=== PATIENT | female | born 1970 | race Caucasian/White ===

== ENCOUNTER 2017-05-22 00:01 | Emergency (ER) | payer OTHER ==
[2017-05-22 00:01] VITALS: BMI 43.4
[2017-05-22 00:16] VITALS: RESP 20
--- NOTE | 2017-05-22 01:19 | C.PDOC ---
History Of Present Illness Patient presents to the ER with a complaint of a dull, cramping, abdominal pain , and diarrhea. Patient was seen in [place] yesterday; patient had a CT and full work up with negative results. Denies fever, chills, nausea, or vomiting. Time Seen by Provider: 05/22/17 01:18 Chief Complaint (Nursing): Abdominal Pain History Per: Patient History/Exam Limitations: no limitations Onset/Duration Of Symptoms: Days Current Symptoms Are (Timing): Still Present Location Of Pain/Discomfort: Diffuse Radiation Of Pain To:: None Quality Of Discomfort: Dull, Cramping Associated Symptoms: Diarrhea. denies: Fever, Chills, Nausea, Vomiting Exacerbating Factors: None Alleviating Factors: None Recent travel outside of the [place]: No Abnormal Vaginal Bleeding: No Past Medical History Reviewed: Historical Data, Nursing Documentation, Vital Signs Vital Signs: Last Vital Signs Temp 98.1 F 05/22/17 00:12 Pulse 79 05/22/17 00:12 Resp 20 05/22/17 00:12 BP 119/76 05/22/17 00:12 Pulse Ox 98 05/22/17 03:16 - Medical History PMH: No Chronic Diseases, Pneumonia (15 years ago) - [facility] Procedures BILAT ENDOS OCC TUBE NEC (02/02/01) CERVICAL BIOPSY NEC (03/31/01) CLOSURE SKIN & SUBCUTANEOUS NEC (06/20/15) D & C NEC (03/31/01) DPT ADMINISTRATION (06/20/15) IMMOBILIZ/WOUND ATTN NEC (06/20/13) INJECT/INFUSE NEC (11/18/14) REMOV THERAPEUT DEV NEC (07/04/15) Family History: States: No Known Family Hx - Social History Hx Tobacco Use: No Hx Alcohol Use: No Hx Substance Use: No - Immunization History Hx Tetanus Toxoid Vaccination: No Hx Influenza Vaccination: No Hx Pneumococcal Vaccination: No Review Of Systems Constitutional: Negative for: Fever, Chills Gastrointestinal: Positive for: Abdominal Pain, Diarrhea. Negative for: Nausea , Vomiting Physical Exam - Physical Exam Appears: Non-toxic, Other (Morbidly obese) Skin: Warm, Dry Oral Mucosa: Moist Chest: Symmetrical, No Tenderness Cardiovascular: Rhythm Regular, No Murmur Respiratory: No Rales, No Rhonchi, No Wheezing Gastrointestinal/Abdominal: Soft, Tenderness (Mild diffuse), No Guarding, No Rebound Neurological/Psych: Oriented x3 ED Course And Treatment - Laboratory Results Result Diagrams: 05/22/17 01:27 05/22/17 01:27 O2 Sat by Pulse Oximetry: 98 (Room air) Pulse Ox Interpretation: Normal Progress Note: Ceftriaxone, pepcid, morphine, zofran, and IV fluids administered. Reevaluation Time: 03:29 Reassessment Condition: Improved Medical Decision Making Medical Decision Making: Upon provider reevaluation patient is feeling better, is medically stable, and requires no further treatment in the ED at this time. Patient will be discharged home with Rx for macrobid and bentyl. Counseling was provided and all questions were answered regarding diagnosis and need for follow up with the referred clinic. There is agreement to discharge plan. Return if symptoms persist or worsen. Disposition Counseled Patient/Family Regarding: Studies Performed, Diagnosis, Need For Followup, Rx Given - Disposition Referrals: [facility] [Outside] [facility] [Outside] Disposition: HOME/ ROUTINE Disposition Time: 01:19 Condition: FAIR Additional Instructions: Please return if symptoms recur Prescriptions: Dicyclomine [Dicyclomine HCl] 10 mg PO QID #12 cap Nitrofurantoin Macrocrystals [Macrobid] 1 cap PO BID #14 cap Instructions: Urinary Tract Infection in Women (DC), Abdominal Pain (ED) Forms: [facility] (Grenadian) Print Language: DANISH - Clinical Impression Clinical Impression: Abdominal pain, Diarrhea, UTI (urinary tract infection) - Scribe Statement The provider has reviewed the documentation as recorded by the Scribsegundo Rodriguez All medical record entries made by the Ashleyibsegundo were at my direction and personally dictated by me. I have reviewed the chart and agree that the record accurately reflects my personal performance of the history, physical exam, medical decision making, and the department course for this patient. I have also personally directed, reviewed, and agree with the discharge instructions and disposition.
[2017-05-22] MEDS ORDERED: Sodium Chloride 0.9% 1,000 ML IV ONE (01:21)
[2017-05-22 01:30] LABS: BASO % 0.8 % (0.0-2.0); EOS # 0.1 K/uL (0.0-0.7); EOS % 1.9 % (0.0-4.0); HEMATOCRIT 37.8 % (34.0-47.0); LYMPH # 1.3 K/uL (1.0-4.3); LYMPH % 20.1 % (20.0-40.0); MEAN CELL VOLUME 84.4 fL (81.0-99.0); MEAN CORPUSCULAR HEMOGLOBIN 27.3 pg (27.0-31.0); MEAN CORPUSCULAR HGB CONC 32.3 g/dL (33.0-37.0); MEAN PLATELET VOLUME 10.1 fL (7.2-11.7); MONO # 0.6 K/uL (0.0-0.8); MONO % 8.7 % (0.0-10.0); RED CELL DISTRIBUTION WIDTH 14.9 % (11.5-14.5); WHITE BLOOD COUNT 6.3 K/uL (4.8-10.8)
[2017-05-22 01:34] LABS: RBC URINE 3 /hpf (0-3); URINE BILIRUBIN NEGATIVE (NEGATIVE); URINE BLOOD NEGATIVE (NEGATIVE); URINE COLOR Yellow (YELLOW); URINE GLUCOSE (UA) NORMAL (Normal); URINE KETONE NEGATIVE (NEGATIVE); URINE LEUKOCYTE ESTERASE 1+ Leu/uL (Negative); URINE PROTEIN NEGATIVE (NEGATIVE); URINE UROBILINOGEN NORMAL mg/dL (0.2-1.0); WBC URINE 13 /hpf (0-5)
[2017-05-22] MEDS ORDERED: Morphine 4 MG/ML VIAL ONE (01:40)
[2017-05-22] MEDS ORDERED: cefTRIAXone IV 1 gm in Dextros 50 ML IVPB ONE ×2 (01:40→02:07)
[2017-05-22] MEDS ORDERED: Sodium Chloride 0.9% 1,000 ML ONE (01:41)
[2017-05-22 01:44] LABS: INR 1.1
[2017-05-22 01:50] LABS: CHLORIDE 99 mmol/L (98-107); SODIUM 140 mmol/L (132-148)
[2017-05-22 01:51] LABS: POTASSIUM 3.6 mmol/L (3.6-5.2)
[2017-05-22 01:52] LABS: GFR AFRICAN-AMERICAN > 60
[2017-05-22 01:53] LABS: ALKALINE PHOSPHATASE 115 U/L (38-126); ALT/SGPT 54 U/L (9-52); AST/SGOT 42 U/L (14-36); BILIRUBIN,TOTAL 0.6 mg/dL (0.2-1.3); BLOOD UREA NITROGEN 17 mg/dL (7-17); CALCIUM 8.2 mg/dl (8.6-10.4); CARBON DIOXIDE 27 mmol/L (22-30); GLUCOSE,RANDOM 98 mg/dL (65-105); TOTAL PROTEIN 7.2 g/dL (6.3-8.3)
[2017-05-22 03:48] VITALS: BP 92/58; PULSE 69; TEMP 98; O2SAT 94
== END 2017-05-22 03:49 | disposition home or self-care (01) ==
LOC: C.ER 00:01
DX: N39.0 Urinary tract infection, site not specified (principal); R19.7 Diarrhea, unspecified; R10.9 Unspecified abdominal pain
CPT/HCPCS: 80053; 81001; 83690; 85025; 85610; 85730; 96361; 96365; 96375; 99283; J0696; J2270; J2405; J7040